=== PATIENT | male | born 1995 | race Two or more races ===

== ENCOUNTER 2019-08-10 17:37 | Emergency (ER) | payer OTHER ==
[~2019-08-10] VITALS: Ht 185.4 cm; Wt 96.4 kg
--- NOTE | 2019-08-10 18:57 | NUR ---
REPORT TO RENU PENDLETON.
[2019-08-10] MEDS ORDERED: ONDANSETRON 2MG/ML, 2ML IVPush ONE (19:00)
[2019-08-10] MEDS ORDERED: SODIUM CHLORIDE 0.9% 1,000ML IVBOLUS ONE ×2 (19:00→20:30)
[2019-08-10] MEDS ORDERED: IBUPROFEN 600 MG TABLET PO ONE (19:00)
[2019-08-10] MEDS ORDERED: ACETAMINOPHEN 500 MG TABLET PO ONE (19:00)
[2019-08-10 19:09] LABS: MEAN CORPUSCULAR HEMOGLOBIN 31.2 pg (27.5-34.5); MEAN CORPUSCULAR VOLUME 91.8 fL (81-97); MEAN PLATELET VOLUME 8.8 fL (7.4-10.4); PLATELET COUNT 229 x10^3/uL (130-400); RED BLOOD COUNT 4.73 x10^6/uL (4.38-5.82); RED CELL DISTRIBUTION WIDTH 12.6 % (9.4-14.8)
[2019-08-10 19:19] LABS: ALBUMIN 4.1 g/dL (3.4-5.0); ANION GAP 6 mmol/L (5-15); CALCIUM 9.1 mg/dL (8.5-10.1); CHLORIDE 106 mmol/L (98-107); CREATININE 0.82 mg/dL (0.7-1.3)
[2019-08-10] MEDS ORDERED: ONDANSETRON 2MG/ML, 2ML ONE (19:19)
[2019-08-10] MEDS ORDERED: ACETAMINOPHEN 500 MG TABLET ONE (19:19)
[2019-08-10] MEDS ORDERED: IBUPROFEN 600 MG TABLET ONE (19:20)
[2019-08-10] MEDS ORDERED: AMOXICILLIN 500 MG CAPSULE PO ONE (19:30)
[2019-08-10 19:34] LABS: RAPID INFLUENZA A Negative (Negative); RAPID INFLUENZA B Negative (Negative)
[2019-08-10 19:35] LABS: BASOPHILS # (AUTO) 0.04 x10^3/uL (0-0.1); BASOPHILS % (AUTO) 0 % (0-1); EOSINOPHILS # (AUTO) 0.02 x10^3/uL (0-0.4); EOSINOPHILS % (AUTO) 0 % (1-7); LYMPHOCYTES # (AUTO) 1.71 x10^3/uL (1-3.4); LYMPHOCYTES % (AUTO) 9 % (22-44); MD SCAN; MONOCYTES # (AUTO) 1.55 x10^3/uL (0.2-0.8); MONOCYTES % (AUTO) 8 % (2-9); NEUTROPHILS # (AUTO) 16.01 x10^3/uL (1.8-6.8); NEUTROPHILS % (AUTO) 83 % (42-75)
[2019-08-10] MEDS ORDERED: AMOXICILLIN 500 MG CAPSULE ONE (19:42)
--- NOTE | 2019-08-10 19:52 | NUR ---
Patient given meds per DEC. Finished fluid bolus. HR still elevated, patient nausea under control. Awaiting lab results.
--- NOTE | 2019-08-10 20:29 | NUR ---
Provider to bedside, informed of negative results. Orders placed to test patients response to ambulation. Task RN to bedside to ambulate patient.
[2019-08-10] MEDS ORDERED: DEXAMETHASONE 4 MG TABLET PO ONE (22:00)
[2019-08-10] MEDS ORDERED: DEXAMETHASONE 4 MG TABLET ONE (22:04)
[2019-08-10 22:21] VITALS: BP 114/89
== END 2019-08-10 22:24 | disposition home or self-care (01) ==
LOC: ED 20:33
DX: J02.0 Streptococcal pharyngitis (principal); R11.2 Nausea with vomiting, unspecified
CPT/HCPCS: 36415; 71045; 80048; 82040; 85025; 87400; 87880; 93005; 96361; 96374; 99284; J2405; J7030

== ENCOUNTER 2021-05-18 16:21 | Emergency (ER) | payer SELFPAY ==
[~2021-05-18] VITALS: Ht 188 cm; Wt 97.6 kg
--- NOTE | 2021-05-18 16:45 | NUR ---
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 PT REPORTS THAT THE BACK OF HIS HEAD HURTS 06/06, "I AM FEELING SLEEPY". CMS INTACT. PT IN BED IN GOWN WITH CONT CARDIAC MONITOS, SPO2, BP Q 30 MIN, SIDE RAILS UP X2, 20G IV STARTED IN RIGHT AC, BLOOD COLLECTED. PT'S AT BEDSIDE, CALL LIGHT IN REACH. AWATING MD TO SEE.
--- NOTE | 2021-05-18 17:24 | NUR ---
PT BACK FROM CT
[2021-05-18 18:08] VITALS: BP 145/75
== END 2021-05-18 18:10 | disposition home or self-care (01) ==
LOC: ED 18:00
DX: S09.90XA Unspecified injury of head, initial encounter (principal); X50.0XXA Overexertion from strenuous movement or load, initial encounter; Y93.89 Activity, other specified; Y92.89 Other specified places as the place of occurrence of the external cause; Y99.8 Other external cause status
CPT/HCPCS: 70450; 99284